=== PATIENT | male | born 1995 | race African-American/Black ===

== ENCOUNTER 2023-02-20 13:03 | Emergency (ER) | payer SELFPAY ==
[2023-02-20 13:13] VITALS: BP 93/57; PULSE 66; RESP 18; TEMP 98.6; BMI 18.4
== END 2023-02-20 14:20 | disposition left against medical advice (07) ==
LOC: JERFT 13:03
DX: H02.823 Cysts of right eye, unspecified eyelid (principal); H04.221 Epiphora due to insufficient drainage, right side
CPT/HCPCS: 99281-25